=== PATIENT | female | born 1945 | race Two or more races ===

== ENCOUNTER 2024-11-05 15:26 | Inpatient (IN) | payer OTHER ==
[~2024-11-05] VITALS: Ht 154.9 cm; Wt 63.5 kg
[2024-11-05] MEDS ORDERED: CRESTOR40 MG PO (15:38)
[2024-11-05] MEDS ORDERED: CHILDREN'S ASPI81 MG PO (15:39)
[2024-11-05] MEDS ORDERED: GLYXAMBI 10 MG1 EACH PO (15:39)
[2024-11-05] MEDS ORDERED: ENALAPRIL MALEA10 MG PO (15:39)
[2024-11-05] MEDS ORDERED: KAPSPARGO SPRIN25 MG PO (15:40)
[2024-11-05] MEDS ORDERED: CIPROFLOXACIN IN 5 % DEXTROSE 400 MG/200 ML PIGGYBAG IV ONE ×2 (16:45→16:47)
[2024-11-05] MEDS ORDERED: MORPHINE SULFATE 4 MG/ML CARTRIDGE IV ONE (16:45)
[2024-11-05] MEDS ORDERED: FAMOtidine 10 MG/ML (4ML VIAL) IV ONE (16:45)
[2024-11-05] MEDS ORDERED: 0.9 % SODIUM CHLORIDE 1,000 ML IV ONE (16:45)
[2024-11-05] MEDS ORDERED: ONDANSETRON HCL 2 MG/ML VIAL IV ONE (16:45)
[2024-11-05] MEDS ORDERED: METRONIDAZOLE/SODIUM CHLORIDE 500 MG/100 ML PIGGYBACK IV ONE ×2 (16:45→16:47)
[2024-11-05] MEDS ORDERED: ONDANSETRON HCL 2 MG/ML VIAL ONE (16:46)
[2024-11-05] MEDS ORDERED: FAMOTIDINE/PF 20 MG/2 ML VIAL ONE (16:47)
[2024-11-05 17:27] LABS: BASO % 0.3 % (0.1-1.2); EOS # 0.05 (0.04-0.54); EOS % 0.5 % (0.7-7.0); HEMATOCRIT 35.1 % (34.1-44.9); LYMPH # 1.78 (1.18-3.74); LYMPH % 17.6 % (19.3-53.1); MEAN CORPUSCULAR HEMOGLOBIN 25.1 pg (25.6-32.2); MONO # 0.88 (0.24-0.82); MONO % 8.7 % (4.7-12.5); NEUT # 7.36 (1.56-6.13); NEUT % 72.6 % (34.0-71.1); PLATELET COUNT 367 K/uL (163-369); RED BLOOD COUNT 4.38 M/uL (3.93-5.22); RED CELL DISTRIBUTION WIDTH 15.7 % (11.6-14.4)
[2024-11-05 17:48] LABS: INR 1.05; PROTHROMBIN TIME 11.4 SECONDS (9.0-11.5)
[2024-11-05 17:49] LABS: PARTIAL THROMBOPLASTIN TIME 27.6 SECONDS (22.0-34.0)
[2024-11-05 18:06] LABS: ALBUMIN 3.1 gm/dL (3.4-5.0); BILIRUBIN TOTAL 0.4 mg/dL (0.3-1.2); CALCIUM 9.4 mg/dL (8.5-10.1); CREATININE SERUM 0.75 mg/dL (0.55-1.02); GFR 74.73; GLOBULINA 4.3 G/DL (2.4-3.5); POTASSIUM 3.75 mEq/L (3.5-5.1); TOTAL PROTEIN 7.4 gm/dL (6.4-8.2)
[2024-11-05 18:09] LABS: URINE APPEARANCE Clear; URINE BILIRRUBIN Negative (NEGATIVE); URINE BLOOD Moderate; URINE COLOR Yellow; URINE KETONE 15 (NEGATIVE); URINE LEUKOCYTE Negative; URINE NITRATE Negative; URINE PROTEIN Negative (NEGATIVE); URINE UROBILINOGEN 0.2 E.U./dl
[2024-11-05 18:13] LABS: URINE RBC 8.2 uL (0.0-20.8); URINE WBC 6.3 uL (0.0-23.2)
[2024-11-05 18:15] LABS: URINE BACTERIA 3.6 uL (0.0-1933); URINE GLUCOSE >=1000 MG/DL (NEGATIVE)
[2024-11-05] MEDS ORDERED: PIPERACILLIN/TAZOBACTAM SODIUM 3.375 GM in DEXTROSE 5 % IN WATER 100 ML IV SCH (21:21)
[2024-11-05] MEDS ORDERED: FAMOTIDINE/PF 20 MG in 0.9 % SODIUM CHLORIDE 8 ML IV PUSH SCH (21:22)
[2024-11-05] MEDS ORDERED: ACETAMINOPHEN 500 MG GEL..CAP PO PRN (21:30)
[2024-11-05] MEDS ORDERED: 0.9 % SODIUM CHLORIDE 1,000 ML IV SCH (21:30)
[2024-11-05] MEDS ORDERED: ONDANSETRON HCL 4 MG in 0.9 % SODIUM CHLORIDE 50 ML IV PRN (21:30)
[2024-11-05] MEDS ORDERED: MORPHINE SULFATE 2 MG/ML CARTRIDGE IV PRN (21:30)
[2024-11-05] MEDS ORDERED: ACETAMINOPHEN 500 MG GEL..CAP PO ONE (22:15)
[2024-11-06] MEDS ORDERED: FAMOTIDINE/PF 20 MG/2 ML VIAL ONE (00:44)
[2024-11-06] MEDS ORDERED: PIPERACILLIN/TAZOBACTAM SODIUM 3.375 GM VIAL IV ONE (00:44)
[2024-11-06 02:42] VITALS: BP 214/79; O2SAT 99
[2024-11-06 02:45] VITALS: BP 119/60
[2024-11-06] MEDS ORDERED: ENALAPRIL MALEATE 10 MG TABLET PO SCH (09:00)
[2024-11-06] MEDS ORDERED: METOPROLOL SUCCINATE 25 MG TAB.SR.24H PO SCH ×2 (09:00)
[2024-11-06] MEDS ORDERED: ENOXAPARIN SODIUM 40 MG/0.4 ML SYRINGE SUBCUTANEO SCH (09:00)
[2024-11-06 09:40] VITALS: BP 126/71; O2SAT 99
[2024-11-06 18:12] VITALS: BP 121/94
[2024-11-07 02:06] VITALS: BP 114/64; O2SAT 96
[2024-11-07 09:12] VITALS: BP 101/66; O2SAT 97
[2024-11-07 18:00] VITALS: BP 118/66
[2024-11-08 02:20] VITALS: BP 130/65; O2SAT 95
[2024-11-08 09:59] VITALS: BP 140/79; O2SAT 98
[2024-11-08 12:17] LABS: CALCIUM 8.8 mg/dL (8.5-10.1); CHOL HDL RATIO 3.7 (0-5.0); CREATININE SERUM 0.59 mg/dL (0.55-1.02); GFR 98.58; POTASSIUM 4.45 mEq/L (3.5-5.1)
[2024-11-08] MEDS ORDERED: AA 4.25%/CAL/LYTES/DEXT 5% 1,000 ML PERIFERAL SCH (17:00)
[2024-11-08 17:19] VITALS: BP 115/46
[2024-11-09 01:39] VITALS: BP 108/60; O2SAT 97
[2024-11-09 06:47] LABS: PARTIAL THROMBOPLASTIN TIME 28.5 SECONDS (22.0-34.0); PROTHROMBIN TIME 10.9 SECONDS (9.0-11.5)
[2024-11-09 06:56] LABS: ALBUMIN 2.5 gm/dL (3.4-5.0); BILIRUBIN TOTAL 0.3 mg/dL (0.3-1.2); CALCIUM 8.7 mg/dL (8.5-10.1); CREATININE SERUM 0.62 mg/dL (0.55-1.02); GFR 93.09; GLOBULINA 3.2 G/DL (2.4-3.5); MAGNESIUM 2.1 mg/dL (1.8-2.4); POTASSIUM 4.37 mEq/L (3.5-5.1); TOTAL PROTEIN 5.7 gm/dL (6.4-8.2)
[2024-11-09 07:03] LABS: BASO % 0.7 % (0.1-1.2); EOS # 0.19 (0.04-0.54); EOS % 2.1 % (0.7-7.0); HEMATOCRIT 32.5 % (34.1-44.9); LYMPH # 1.51 (1.18-3.74); LYMPH % 16.9 % (19.3-53.1); MEAN CORPUSCULAR HEMOGLOBIN 25.1 pg (25.6-32.2); MONO # 0.82 (0.24-0.82); MONO % 9.2 % (4.7-12.5); NEUT # 6.33 (1.56-6.13); NEUT % 70.9 % (34.0-71.1); PLATELET COUNT 379 K/uL (163-369); RED BLOOD COUNT 3.99 M/uL (3.93-5.22); RED CELL DISTRIBUTION WIDTH 15.4 % (11.6-14.4)
[2024-11-09] MEDS ORDERED: PIPERACILLIN/TAZOBACTAM SODIUM 3.375 GM VIAL IV ONE (07:56)
[2024-11-09] MEDS ORDERED: FAMOTIDINE/PF 20 MG/2 ML VIAL ONE (07:56)
[2024-11-09 08:30] VITALS: BP 110/60; O2SAT 99
[2024-11-09 16:44] VITALS: BP 113/74
[2024-11-09] MEDS ORDERED: MEROPENEM 500 MG/VIAL VIAL IV SCH (18:00)
[2024-11-09] MEDS ORDERED: DIATRIZOATE MEGLUMINE, SODIUM 30 ML BOTTLE PO NR (18:15)
[2024-11-10 01:04] VITALS: BP 131/66; O2SAT 99
[2024-11-10] MEDS ORDERED: DIATRIZOATE MEGLUMINE, SODIUM 30 ML BOTTLE PO NR (06:00)
[2024-11-10 08:10] VITALS: BP 112/64; O2SAT 99
[2024-11-10 17:22] VITALS: BP 116/62; O2SAT 98
[2024-11-11 02:43] VITALS: BP 129/69; O2SAT 96
[2024-11-11 09:01] VITALS: BP 123/59
[2024-11-11] MEDS ORDERED: PANTOPRAZOLE SODIUM 40 MG/VIAL VIAL IV SCH (09:34)
[2024-11-11] MEDS ORDERED: ONDANSETRON HCL 4 MG in 0.9 % SODIUM CHLORIDE 50 ML IV PRN (09:45)
[2024-11-11] MEDS ORDERED: KETOROLAC TROMETHAMINE 30 MG VIAL IM SCH (12:00)
[2024-11-11 16:55] VITALS: BP 128/73; O2SAT 99
[2024-11-12 02:09] VITALS: BP 118/73; O2SAT 97
[2024-11-12 05:26] LABS: BASO % 0.6 % (0.1-1.2); EOS # 0.25 (0.04-0.54); EOS % 2.3 % (0.7-7.0); HEMATOCRIT 32.7 % (34.1-44.9); LYMPH # 2.35 (1.18-3.74); LYMPH % 21.8 % (19.3-53.1); MEAN CORPUSCULAR HEMOGLOBIN 24.5 pg (25.6-32.2); MONO # 0.91 (0.24-0.82); MONO % 8.4 % (4.7-12.5); NEUT # 7.18 (1.56-6.13); NEUT % 66.5 % (34.0-71.1); PLATELET COUNT 442 K/uL (163-369); RED BLOOD COUNT 4.21 M/uL (3.93-5.22); RED CELL DISTRIBUTION WIDTH 15.6 % (11.6-14.4)
[2024-11-12 05:36] LABS: HEMOGLOBIN 10.3 g/dL (11.2-15.7)
[2024-11-12 05:58] LABS: ALBUMIN 2.5 gm/dL (3.4-5.0); BILIRUBIN TOTAL 0.34 mg/dL (0.3-1.2); CALCIUM 8.7 mg/dL (8.5-10.1); CREATININE SERUM 0.81 mg/dL (0.55-1.02); GFR 68.38; GLOBULINA 3.3 G/DL (2.4-3.5); POTASSIUM 3.6 mEq/L (3.5-5.1); TOTAL PROTEIN 5.8 gm/dL (6.4-8.2)
[2024-11-12 08:45] VITALS: BP 125/73
[2024-11-12 17:44] VITALS: BP 112/68; O2SAT 97
[2024-11-13 02:46] VITALS: BP 145/83; O2SAT 97
[2024-11-13 08:44] VITALS: BP 124/80; O2SAT 98
== END 2024-11-13 16:27 | disposition home or self-care (01) | DRG 391 ==
LOC: ER 15:47 → MEDJ 21:32 → SEC-K 21:32 → MEDJ 23:55
PROVIDERS: General Practice; Internal Medicine; ADMIT Student in an Organized Health Care Education/Training Program; ATTEND Student in an Organized Health Care Education/Training Program
PROC: 02HV33Z Insertion of Infusion Device into Superior Vena Cava, Percutaneous Approach (ICD-10-PCS; 2024-11-07)
PROC: BW21YZZ Computerized Tomography (CT Scan) of Abdomen and Pelvis using Other Contrast (ICD-10-PCS; principal; 2024-11-09)
PROC: B246ZZZ Ultrasonography of Right and Left Heart (ICD-10-PCS; 2024-11-12)
DX: K57.32 Diverticulitis of large intestine without perforation or abscess without bleeding (principal); K65.1 Peritoneal abscess

== ENCOUNTER 2025-02-20 09:22 | Inpatient (IN) | payer OTHER ==
[~2025-02-20] VITALS: Ht 157.5 cm; Wt 68.0 kg
[~2025-02-20 09:22] MED LIST: CHILDREN'S ASPI81 MG PO; CRESTOR40 MG PO; ENALAPRIL MALEA10 MG PO; GLYXAMBI 10 MG1 EACH PO; KAPSPARGO SPRIN25 MG PO
[2025-02-20] MEDS ORDERED: 0.9 % SODIUM CHLORIDE 1,000 ML IV ONE (09:45)
[2025-02-20] MEDS ORDERED: PANTOPRAZOLE SODIUM 40 MG/VIAL VIAL IV ONE (09:45)
[2025-02-20] MEDS ORDERED: CIPROFLOXACIN IN 5 % DEXTROSE 400 MG/200 ML PIGGYBAG IV ONE ×2 (09:45→09:54)
[2025-02-20] MEDS ORDERED: MORPHINE SULFATE 2 MG/ML SYRINGE IV ONE (09:45)
[2025-02-20] MEDS ORDERED: ONDANSETRON HCL 2 MG/ML VIAL ONE (10:36)
[2025-02-20 10:38] LABS: BASO % 0.3 % (0.1-1.2); EOS # 0.01 (0.04-0.54); EOS % 0.1 % (0.7-7.0); LYMPH # 0.92 (1.18-3.74); LYMPH % 7.8 % (19.3-53.1); MEAN PLATELET VOLUME 9.80 fl (9.4-12.4); MONO # 0.79 (0.24-0.82); MONO % 6.7 % (4.7-12.5); NEUT # 9.99 (1.56-6.13); NEUT % 84.7 % (34.0-71.1); RED CELL DISTRIBUTION WIDTH 15.2 % (11.6-14.4)
[2025-02-20 11:03] LABS: INR 1.04
[2025-02-20 11:04] LABS: D DIMER 2.0 MG/L
[2025-02-20 11:11] LABS: ALT/SGPT 23.0 U/L (12-78); AST/SGOT 10.0 U/L (15-37); BILIRUBIN TOTAL 0.32 mg/dL (0.3-1.2); BUN CREA RATIO 15.0 (7.0-25.0); CREATININE SERUM 0.74 mg/dL (0.55-1.02); GFR 75.9; GLOBULINA 4.3 G/DL (2.4-3.5); GLUCOSE FASTING 178.0 mg/dL (65-100); OSMOLALITY SERUM 281.0 MOSM/KG (275-295)
[2025-02-20 11:38] LABS: URINE APPEARANCE Clear; URINE BILIRRUBIN Negative (NEGATIVE); URINE BLOOD Trace; URINE COLOR Yellow; URINE KETONE Negative (NEGATIVE); URINE LEUKOCYTE Moderate; URINE NITRATE Negative; URINE PROTEIN 30 (NEGATIVE); URINE UROBILINOGEN 1.0 E.U./dl
[2025-02-20 11:43] LABS: URINE BACTERIA 139.1 uL (0.0-1933); URINE EPITHELIAL CELLS 35.2 uL (0.0-38.8); URINE RBC 15.5 uL (0.0-20.8); URINE WBC 199.3 uL (0.0-23.2)
[2025-02-20 12:12] LABS: URINE CAST 0.73 uL (0.0-1.40); URINE GLUCOSE >=1000 MG/DL (NEGATIVE)
[2025-02-20 12:14] LABS: TYPE CELLS SQUAMOUS
[2025-02-20] MEDS ORDERED: PIPERACILLIN/TAZOBACTAM SODIUM 3.375 GM VIAL IV SCH (12:25)
[2025-02-20] MEDS ORDERED: PIPERACILLIN/TAZOBACTAM SODIUM 3.375 GM VIAL IV ONE (12:28)
[2025-02-20] MEDS ORDERED: KETOROLAC TROMETHAMINE 30 MG VIAL IV ONE (12:45)
[2025-02-20] MEDS ORDERED: ENOXAPARIN SODIUM 60 MG/0.6 ML SYRINGE SUBCUTANEO SCH (12:48)
[2025-02-20] MEDS ORDERED: KETOROLAC TROMETHAMINE 30 MG VIAL ONE (12:48)
[2025-02-20] MEDS ORDERED: ENOXAPARIN SODIUM 60 MG/0.6 ML SYRINGE SUBCUTANEO ONE (13:50)
[2025-02-20] MEDS ORDERED: RINGERS SOLUTION,LACTATED 1,000 ML IV SCH (14:00)
[2025-02-20] MEDS ORDERED: POTASSIUM CHLORIDE 20MEQ/100ML H2O PB IV ONE (14:00)
[2025-02-20] MEDS ORDERED: FAMOTIDINE/PF 20 MG/2 ML VIAL IV SCH (14:00)
[2025-02-20] MEDS ORDERED: MORPHINE SULFATE 2 MG/ML SYRINGE IV PRN (14:00)
[2025-02-20] MEDS ORDERED: AMINO ACIDS/PROTEIN HYDROLYS 30 ML BLIST.PACK PO SCH (17:00)
[2025-02-20 18:38] LABS: COVID-19 AG NEGATIVE (NEGATIVE)
[2025-02-20] MEDS ORDERED: ACETAMINOPHEN 500 MG GEL..CAP PO PRN (22:30)
[2025-02-20 22:37] VITALS: BP 105/45; O2SAT 98
[2025-02-21 06:17] VITALS: BP 104/63; O2SAT 96
[2025-02-21 08:39] LABS: BASO % 0.6 % (0.1-1.2); EOS # 0.13 (0.04-0.54); EOS % 1.5 % (0.7-7.0); LYMPH # 1.92 (1.18-3.74); LYMPH % 21.6 % (19.3-53.1); MEAN PLATELET VOLUME 10.40 fl (9.4-12.4); MONO # 1.08 (0.24-0.82); NEUT # 5.66 (1.56-6.13); NEUT % 63.8 % (34.0-71.1); RED CELL DISTRIBUTION WIDTH 15.5 % (11.6-14.4)
[2025-02-21 08:51] LABS: MONO % 12.2 % (4.7-12.5)
[2025-02-21 08:54] LABS: ALT/SGPT 17.0 U/L (12-78); AST/SGOT 14.0 U/L (15-37); BILIRUBIN TOTAL 0.3 mg/dL (0.3-1.2); BUN CREA RATIO 19.0 (7.0-25.0); CHOL HDL RATIO 3.5 (0-5.0); CREATININE SERUM 0.81 mg/dL (0.55-1.02); GFR 68.38; GLOBULINA 3.0 G/DL (2.4-3.5); GLUCOSE FASTING 143.0 mg/dL (65-100); HDL 26.0 mg/dl (40-60); LDL 33.0 mg/dl (0-130); OSMOLALITY SERUM 283.0 MOSM/KG (275-295); VLDL 31.0 (0-39)
[2025-02-21] MEDS ORDERED: ENALAPRIL MALEATE 2.5 MG TABLET PO SCH (09:00)
[2025-02-21] MEDS ORDERED: IRON FUM,PS/FOLIC/BCOMP,C NO.9 1 CAP CAPSULE PO SCH ×2 (09:00→10:07)
[2025-02-21] MEDS ORDERED: ONDANSETRON HCL 4 MG in DEXTROSE 5 % IN WATER 50 ML IV PRN (10:00)
[2025-02-21] MEDS ORDERED: KETOROLAC TROMETHAMINE 30 MG VIAL IV PRN (10:00)
[2025-02-21 10:07] VITALS: BP 101/47
[2025-02-21] MEDS ORDERED: TRAMADOL HCL 50 MG TABLET PO PRN (10:15)
[2025-02-21] MEDS ORDERED: AMINO ACIDS/PROTEIN HYDROLYS 30 ML BLIST.PACK PO SCH (13:00)
[2025-02-21] MEDS ORDERED: GABAPENTIN 300 MG CAPSULE PO SCH (13:00)
[2025-02-21] MEDS ORDERED: AMINO ACIDS 4.25 %/DEXTROSE 5% 1,000 ML PERIFERAL SCH (17:00)
[2025-02-21 18:32] VITALS: BP 104/65
[2025-02-22 00:46] VITALS: BP 112/63; O2SAT 97
[2025-02-22 08:00] VITALS: BP 128/60; O2SAT 99
[2025-02-22] MEDS ORDERED: ENOXAPARIN SODIUM 40 MG/0.4 ML SYRINGE SUBCUTANEO SCH (09:00)
[2025-02-22 18:19] LABS: BASO % 0.2 % (0.1-1.2); EOS # 0.06 (0.04-0.54); EOS % 0.7 % (0.7-7.0); LYMPH # 1.41 (1.18-3.74); LYMPH % 15.5 % (19.3-53.1); MEAN PLATELET VOLUME 9.50 fl (9.4-12.4); MONO # 0.65 (0.24-0.82); MONO % 7.2 % (4.7-12.5); NEUT # 6.86 (1.56-6.13); NEUT % 75.5 % (34.0-71.1); RED CELL DISTRIBUTION WIDTH 15.1 % (11.6-14.4)
[2025-02-22 18:38] LABS: INR 1.09
[2025-02-22 19:04] LABS: ALT/SGPT 19.0 U/L (12-78); AST/SGOT 12.0 U/L (15-37); BILIRUBIN TOTAL 0.45 mg/dL (0.3-1.2); BILIRUBIN,CONJUGATED 0.21 mg/dL (0.0-0.2); BUN CREA RATIO 29.0 (7.0-25.0); CHOL HDL RATIO 3.5 (0-5.0); CREATININE SERUM 0.55 mg/dL (0.55-1.02); GFR 106.9; GLOBULINA 2.9 G/DL (2.4-3.5); GLUCOSE FASTING 121.0 mg/dL (65-100); HDL 29.0 mg/dl (40-60); LDL 45.0 mg/dl (0-130); OSMOLALITY SERUM 282.0 MOSM/KG (275-295); VLDL 27.0 (0-39)
[2025-02-22] MEDS ORDERED: POTASSIUM CHLORIDE IN WATER 40 MEQ/100 ML PIGGYBAG IV STA (19:50)
[2025-02-22] MEDS ORDERED: MAGNESIUM SULFATE IN WATER 4 GM/100 ML PIGGYBACK IV STA (19:51)
[2025-02-22] MEDS ORDERED: FAT EMULSIONS 250 ML IV SCH (21:00)
[2025-02-22 21:26] VITALS: BP 112/97
[2025-02-23] MEDS ORDERED: POTASSIUM CHLORIDE IN WATER 40 MEQ/100 ML PIGGYBAG IV SCH (01:00)
[2025-02-23 01:43] VITALS: BP 127/75; O2SAT 100
[2025-02-23 06:15] LABS: BASO % 0.4 % (0.1-1.2); EOS # 0.20 (0.04-0.54); EOS % 1.8 % (0.7-7.0); LYMPH # 1.37 (1.18-3.74); LYMPH % 12.2 % (19.3-53.1); MEAN PLATELET VOLUME 10.00 fl (9.4-12.4); MONO # 0.94 (0.24-0.82); MONO % 8.4 % (4.7-12.5); NEUT # 8.54 (1.56-6.13); NEUT % 76.0 % (34.0-71.1); RED CELL DISTRIBUTION WIDTH 15.3 % (11.6-14.4)
[2025-02-23 06:43] LABS: ALT/SGPT 19.0 U/L (12-78); AST/SGOT 15.0 U/L (15-37); BILIRUBIN TOTAL 0.41 mg/dL (0.3-1.2); BUN CREA RATIO 21.0 (7.0-25.0); CREATININE SERUM 0.68 mg/dL (0.55-1.02); GFR 83.68; GLOBULINA 3.1 G/DL (2.4-3.5); GLUCOSE FASTING 152.0 mg/dL (65-100); OSMOLALITY SERUM 281.0 MOSM/KG (275-295)
[2025-02-23 09:13] VITALS: BP 101/50; O2SAT 99
[2025-02-23] MEDS ORDERED: POTASSIUM CHLORIDE IN WATER 100 ML IV NR (10:30)
[2025-02-23 17:44] VITALS: BP 125/61; O2SAT 98
[2025-02-24 02:58] VITALS: BP 132/75; O2SAT 97
[2025-02-24 06:10] LABS: BASO % 0.5 % (0.1-1.2); EOS # 0.24 (0.04-0.54); EOS % 3.1 % (0.7-7.0); LYMPH # 1.77 (1.18-3.74); LYMPH % 22.8 % (19.3-53.1); MEAN PLATELET VOLUME 10.00 fl (9.4-12.4); MONO # 0.89 (0.24-0.82); MONO % 11.5 % (4.7-12.5); NEUT # 4.76 (1.56-6.13); NEUT % 61.3 % (34.0-71.1); RED CELL DISTRIBUTION WIDTH 15.2 % (11.6-14.4)
[2025-02-24 06:32] LABS: ALT/SGPT 20.0 U/L (12-78); AST/SGOT 16.0 U/L (15-37); BILIRUBIN TOTAL 0.33 mg/dL (0.3-1.2); BUN CREA RATIO 21.0 (7.0-25.0); CREATININE SERUM 0.58 mg/dL (0.55-1.02); GFR 100.54; GLOBULINA 3.2 G/DL (2.4-3.5); GLUCOSE FASTING 154.0 mg/dL (65-100); OSMOLALITY SERUM 286.0 MOSM/KG (275-295)
[2025-02-24 07:00] VITALS: BP 141/66; O2SAT 97
[2025-02-24] MEDS ORDERED: POTASSIUM CHLORIDE 20MEQ/100ML H2O PB IV SCH (12:00)
[2025-02-24] MEDS ORDERED: LOPERAMIDE HCL 2 MG CAPSULE PO STA (13:21)
[2025-02-24] MEDS ORDERED: BISMUTH SUBSALICYLATE 524 MG/30 ML BLIST.PACK PO PRN (13:30)
[2025-02-24] MEDS ORDERED: DIATRIZOATE MEGLUMINE, SODIUM 30 ML BOTTLE PO STA (14:00)
[2025-02-24 14:43] LABS: ob POSITIVE (NEGATIVE)
[2025-02-24 17:21] VITALS: BP 119/85
[2025-02-24] MEDS ORDERED: MIDAZOLAM HCL 2 MG/2 ML VIAL IV PUSH ONE (22:00)
[2025-02-24] MEDS ORDERED: fentaNYL CITRATE 50 MCG/ML AMPUL IV PUSH ONE (22:00)
[2025-02-25 01:33] VITALS: BP 96/58; O2SAT 98
[2025-02-25] MEDS ORDERED: POTASSIUM CHLORIDE 20MEQ/100ML H2O PB IV ONE (02:09)
[2025-02-25] MEDS ORDERED: DIATRIZOATE MEGLUMINE, SODIUM 30 ML BOTTLE PO SCH (06:00)
[2025-02-25 07:30] LABS: ALT/SGPT 18.0 U/L (12-78); AST/SGOT 13.0 U/L (15-37); BILIRUBIN TOTAL 0.37 mg/dL (0.3-1.2); BUN CREA RATIO 18.0 (7.0-25.0); CREATININE SERUM 0.66 mg/dL (0.55-1.02); GFR 86.61; GLOBULINA 3.3 G/DL (2.4-3.5); GLUCOSE FASTING 152.0 mg/dL (65-100); OSMOLALITY SERUM 284.0 MOSM/KG (275-295)
[2025-02-25 07:31] LABS: BASO % 0.5 % (0.1-1.2); EOS # 0.40 (0.04-0.54); EOS % 3.7 % (0.7-7.0); LYMPH # 1.37 (1.18-3.74); LYMPH % 12.7 % (19.3-53.1); MEAN PLATELET VOLUME 10.00 fl (9.4-12.4); MONO # 0.96 (0.24-0.82); MONO % 8.9 % (4.7-12.5); NEUT # 7.93 (1.56-6.13); NEUT % 73.5 % (34.0-71.1); RED CELL DISTRIBUTION WIDTH 15.4 % (11.6-14.4)
[2025-02-25 09:01] VITALS: BP 144/86; O2SAT 96
[2025-02-25] MEDS ORDERED: POTASSIUM PHOS,M-BASIC-D-BASIC 3 MM/ML VIAL IV NR (13:00)
[2025-02-25 17:22] VITALS: BP 112/68
[2025-02-26 01:38] VITALS: BP 119/70; O2SAT 95
[2025-02-26 09:16] VITALS: BP 91/54; O2SAT 95
[2025-02-26 09:55] LABS: FOLIC ACID > 20.00 ng/ml (4.78-20)
[2025-02-26 20:04] VITALS: BP 127/83; O2SAT 100
[2025-02-27 00:32] VITALS: BP 111/66; O2SAT 97
[2025-02-27 07:37] LABS: BASO % 0.5 % (0.1-1.2); EOS # 0.36 (0.04-0.54); EOS % 3.5 % (0.7-7.0); LYMPH # 1.79 (1.18-3.74); LYMPH % 17.2 % (19.3-53.1); MEAN PLATELET VOLUME 10.00 fl (9.4-12.4); MONO # 1.06 (0.24-0.82); MONO % 10.2 % (4.7-12.5); NEUT # 7.08 (1.56-6.13); NEUT % 68.1 % (34.0-71.1); RED CELL DISTRIBUTION WIDTH 15.8 % (11.6-14.4)
[2025-02-27 08:04] LABS: ALT/SGPT 13.0 U/L (12-78); AST/SGOT 9.0 U/L (15-37); BILIRUBIN TOTAL 0.41 mg/dL (0.3-1.2); BUN CREA RATIO 10.0 (7.0-25.0); CREATININE SERUM 0.71 mg/dL (0.55-1.02); GFR 79.61; GLOBULINA 3.3 G/DL (2.4-3.5); GLUCOSE FASTING 125.0 mg/dL (65-100); OSMOLALITY SERUM 283.0 MOSM/KG (275-295)
[2025-02-27 08:46] VITALS: BP 118/70; O2SAT 96
[2025-02-27] MEDS ORDERED: SOD FERRIC GLUC COMPLX/SUCROSE 62.5 MG in 0.9 % SODIUM CHLORIDE 50 ML IV SCH (17:00)
[2025-02-27 17:52] VITALS: BP 132/68; O2SAT 98
[2025-02-28 01:05] VITALS: BP 122/68; O2SAT 98
[2025-02-28 09:23] VITALS: BP 120/59; O2SAT 97
[2025-02-28 17:20] VITALS: BP 150/71; O2SAT 97
[2025-03-01 01:06] VITALS: BP 117/61; O2SAT 98
[2025-03-01 09:05] VITALS: BP 120/57; O2SAT 97
[2025-03-01] MEDS ORDERED: DIATRIZOATE MEGLUMINE, SODIUM 30 ML BOTTLE PO STA (11:17)
[2025-03-01 15:22] LABS: BASO % 0.6 % (0.1-1.2); EOS # 0.47 (0.04-0.54); EOS % 4.3 % (0.7-7.0); LYMPH # 2.16 (1.18-3.74); LYMPH % 19.8 % (19.3-53.1); MEAN PLATELET VOLUME 11.10 fl (9.4-12.4); MONO # 1.01 (0.24-0.82); MONO % 9.3 % (4.7-12.5); NEUT # 7.17 (1.56-6.13); NEUT % 65.7 % (34.0-71.1); RED CELL DISTRIBUTION WIDTH 16.3 % (11.6-14.4)
[2025-03-01 16:01] LABS: ALT/SGPT 14.0 U/L (12-78); AST/SGOT 15.0 U/L (15-37); BILIRUBIN TOTAL 0.41 mg/dL (0.3-1.2); BUN CREA RATIO 9.0 (7.0-25.0); CREATININE SERUM 0.76 mg/dL (0.55-1.02); GFR 73.6; GLOBULINA 3.9 G/DL (2.4-3.5); GLUCOSE FASTING 105.0 mg/dL (65-100); OSMOLALITY SERUM 278.0 MOSM/KG (275-295)
[2025-03-01 17:33] VITALS: BP 143/84
[2025-03-01] MEDS ORDERED: POTASSIUM PHOS,M-BASIC-D-BASIC 3 MM/ML VIAL IV ONE (19:15)
[2025-03-02 02:34] VITALS: BP 115/62; O2SAT 95
[2025-03-02 06:47] LABS: BASO % 0.7 % (0.1-1.2); EOS # 0.54 (0.04-0.54); EOS % 6.7 % (0.7-7.0); LYMPH # 1.78 (1.18-3.74); LYMPH % 22.2 % (19.3-53.1); MEAN PLATELET VOLUME 9.90 fl (9.4-12.4); MONO # 0.84 (0.24-0.82); MONO % 10.5 % (4.7-12.5); NEUT # 4.77 (1.56-6.13); NEUT % 59.4 % (34.0-71.1); RED CELL DISTRIBUTION WIDTH 16.3 % (11.6-14.4)
[2025-03-02 08:21] VITALS: BP 116/70
[2025-03-02 15:08] LABS: ALT/SGPT 14.0 U/L (12-78); AST/SGOT 26.0 U/L (15-37); BILIRUBIN TOTAL 0.41 mg/dL (0.3-1.2); BUN CREA RATIO 11.0 (7.0-25.0); CREATININE SERUM 0.81 mg/dL (0.55-1.02); GFR 68.38; GLOBULINA 3.6 G/DL (2.4-3.5); GLUCOSE FASTING 183.0 mg/dL (65-100); OSMOLALITY SERUM 285.0 MOSM/KG (275-295)
[2025-03-02 17:14] VITALS: BP 133/73; O2SAT 100
[2025-03-02] MEDS ORDERED: MAGNESIUM SULFATE IN WATER 50 ML IV ONE (20:00)
[2025-03-03 02:35] VITALS: BP 127/72; O2SAT 95
[2025-03-03 08:46] VITALS: BP 131/66
[2025-03-03 17:34] LABS: BASO % 1.3 % (0.1-1.2); EOS # 0.42 (0.04-0.54); EOS % 4.7 % (0.7-7.0); LYMPH # 2.27 (1.18-3.74); LYMPH % 25.2 % (19.3-53.1); MEAN PLATELET VOLUME 9.60 fl (9.4-12.4); MONO # 0.68 (0.24-0.82); MONO % 7.5 % (4.7-12.5); NEUT # 5.47 (1.56-6.13); NEUT % 60.7 % (34.0-71.1); RED CELL DISTRIBUTION WIDTH 16.1 % (11.6-14.4)
[2025-03-03 19:48] VITALS: BP 135/79
[2025-03-04 01:20] VITALS: BP 125/57; O2SAT 94
[2025-03-04 08:44] VITALS: BP 116/69; O2SAT 95
[2025-03-04] MEDS ORDERED: LORATADINE 10 MG TABLET PO SCH (17:00)
[2025-03-04 18:50] VITALS: BP 123/73
[2025-03-05 01:50] VITALS: BP 110/67; O2SAT 95
[2025-03-05 09:50] VITALS: BP 97/66; O2SAT 99
[2025-03-05] MEDS ORDERED: AMOX-CLAV 875-1 EAC1 PO (12:12)
[2025-03-05] MEDS ORDERED: INTESTINEX680 M1 PO (12:12)
[2025-03-05] MEDS ORDERED: INTEGRA PLUS C1 EACH PO (12:12)
[2025-03-05] MEDS ORDERED: GABAPENTIN300 MG PO (12:13)
== END 2025-03-05 14:05 | DRG 391 ==
LOC: ER 09:22 → MEDI 14:17 → MEDJ 02-23 07:32 → O/R 03-02 16:32 → MEDJ 03-02 16:33
PROVIDERS: General Practice; Internal Medicine; Surgery; ADMIT Internal Medicine; ATTEND Internal Medicine
PROC: BW21ZZZ Computerized Tomography (CT Scan) of Abdomen and Pelvis (ICD-10-PCS; 2025-02-20)
PROC: B54CZZZ Ultrasonography of Left Lower Extremity Veins (ICD-10-PCS; 2025-02-20)
PROC: 02HV33Z Insertion of Infusion Device into Superior Vena Cava, Percutaneous Approach (ICD-10-PCS; 2025-02-22)
PROC: B548ZZA Ultrasonography of Superior Vena Cava, Guidance (ICD-10-PCS; 2025-02-22)
PROC: 3E0436Z Introduction of Nutritional Substance into Central Vein, Percutaneous Approach (ICD-10-PCS; 2025-02-22)
PROC: 0W9G30Z Drainage of Peritoneal Cavity with Drainage Device, Percutaneous Approach (ICD-10-PCS; principal; 2025-02-24)
PROC: BW21YZZ Computerized Tomography (CT Scan) of Abdomen and Pelvis using Other Contrast (ICD-10-PCS; 2025-03-01)
PROC: 30243N1 Transfusion of Nonautologous Red Blood Cells into Central Vein, Percutaneous Approach (ICD-10-PCS; 2025-03-03)
PROC: 0WW Anatomical Regions, General, Revision (ICD-10-PCS; 2025-03-05)
DX: K57.20 Diverticulitis of large intestine with perforation and abscess without bleeding (principal); K65.1 Peritoneal abscess; N13.30 Unspecified hydronephrosis; K63.2 Fistula of intestine; D50.8 Other iron deficiency anemias; E87.6 Hypokalemia; E88.09 Other disorders of plasma-protein metabolism, not elsewhere classified; M79.662 Pain in left lower leg; E11.22 Type 2 diabetes mellitus with diabetic chronic kidney disease; N18.2 Chronic kidney disease, stage 2 (mild); E78.5 Hyperlipidemia, unspecified; Z87.891 Personal history of nicotine dependence; B96.20 Unspecified Escherichia coli [E. coli] as the cause of diseases classified elsewhere; B95.2 Enterococcus as the cause of diseases classified elsewhere; B96.6 Bacteroides fragilis [B. fragilis] as the cause of diseases classified elsewhere